=== PATIENT | male | born 1955 | race Caucasian/White ===

== ENCOUNTER 2017-05-17 09:01 | Outpatient (CLI) | payer MEDICARE ==
[~2017-05-17] VITALS: Ht 177.8 cm; Wt 67.3 kg
[~2017-05-17 09:01] MED LIST: ADVAIR 250/501 DISK INH; ASPIRIN 81 MG E81 MG PO; NORCO 5/325 TAB1 TA1 PO; OMEPRAZOLE20 M1 PO; PRINZIDE 20/12.1 TAB PO; SINGULAIR10 MG PO
[2017-05-17] MEDS ORDERED: NORVASC10 MG PO (09:49)
[2017-05-17] MEDS ORDERED: PROAIR HFA8.5 GM INH (09:49)
[2017-05-17] MEDS ORDERED: ZOCOR10 MG PO (09:49)
[2017-05-17] MEDS ORDERED: BYSTOLIC5 MG PO (09:49)
[2017-05-17] MEDS ORDERED: INCRUSE ELLI62.5 MCG INH (09:50)
[2017-05-17 10:21] VITALS: BP 126/72; Ht 177.8 cm; Wt 67.3 kg
[2017-05-17 10:41] LABS: HEMATOCRIT 45.4 % (42.0-54.0); HEMOGLOBIN 16.1 g/dL (13.5-17.5); MCH 32.7 pg (26.0-34.0); MCHC 35.5 g/dL (31.0-37.0); MCV 92.1 fL (80.0-100.0); MEAN PLATELET VOLUME 9.6 fL (7.4-10.4); PLATELET COUNT 230 10x3/uL (130-400); RBC 4.93 10x6/uL (4.20-6.10); RDW 13.8 % (11.5-14.5); WBC 8.1 10x3/uL (4.8-10.8)
[2017-05-17 10:50] LABS: APTT 33.9 SECONDS (22.8-39.4); INR 1.06 (0.85-1.17); PROTIME 13.4 SECONDS (11.6-15.0)
[2017-05-17 11:14] LABS: LYMPHOCYTES 20 % (15-50); MONOCYTES 6 % (2-11); NEUTROPHILS 73 % (40-80); PLATELET ESTIMATE NORMAL
--- NOTE | 2017-05-17 12:59 | NUR ---
1235-RECD TO ROOM POST BRONCHOSCOPY. AROUSES EASILY. IV PATENT. O2 ON AT 2L PER NC.
--- NOTE | 2017-05-17 14:12 | NUR ---
1400-NO PNEUMO PER DR. LOPES
--- NOTE | 2017-05-17 15:43 | NUR ---
1415--FINGER FOOD TRAY SERVED. DEBBY THOMPSON 2347--DISCHARGE INSTRUCTIONS GIVEN, PT VERBALIZES UNDERSTANDING. PT REFUSED WHEELCHAIR ESCORT OFF UNIT. DEBBY THOMPSON
[2017-05-18 16:13] LABS: AFB SPECIMEN PROCESSING Concentration (())
[2017-05-21 10:10] LABS: FUNGUS STAIN Final report (())
[2017-05-24 14:20] LABS: FUNGUS CULTURE RESULT 1 Candida albicans (())
[2017-05-31 15:23] LABS: AEROBE ID Final report (()); RESULT 1 Rothia dentocariosa (())
[2017-06-15 13:14] LABS: FUNGUS MYCOLOGY CULTURE Final report (())
[2017-07-06 11:18] LABS: ACID FAST CULTURE Negative (()); ACID FAST SMEAR Negative (())
== END 2017-05-17 14:55 | disposition home or self-care (01) ==
LOC: D.OPS 09:01
PROVIDERS: Internal Medicine Pulmonary Disease
DX: R04.2 Hemoptysis (principal); J44.9 Chronic obstructive pulmonary disease, unspecified; J30.9 Allergic rhinitis, unspecified; Z87.891 Personal history of nicotine dependence; K21.9 Gastro-esophageal reflux disease without esophagitis; M19.90 Unspecified osteoarthritis, unspecified site; I25.10 Atherosclerotic heart disease of native coronary artery without angina pectoris; E78.5 Hyperlipidemia, unspecified; I10 Essential (primary) hypertension; R76.11 Nonspecific reaction to tuberculin skin test without active tuberculosis; Z85.038 Personal history of other malignant neoplasm of large intestine; Z01.812 Encounter for preprocedural laboratory examination

== ENCOUNTER → 2017-10-15 08:21 | Outpatient (CLI) | payer MEDICARE ==
[2017-05-17 10:21] VITALS: BMI 21.2
[~2017-10-15 08:21] MED LIST changes: +BYSTOLIC5 MG PO; +INCRUSE ELLI62.5 MCG INH; +NORVASC10 MG PO; +PROAIR HFA8.5 GM INH; +ZOCOR10 MG PO
== END | disposition home or self-care (01) ==
LOC: D.CT 08:21
DX: J44.9 Chronic obstructive pulmonary disease, unspecified (principal)